=== PATIENT | female | born 1965 ===

== ENCOUNTER 2018-04-11 11:04 | Emergency (ER) | payer BC ==
[2018-04-11 11:24] VITALS: BP 148/80
--- NOTE | 2018-04-11 11:35 | UC ---
Skin Complaint HPI - HPI Summary HPI Summary: This morning at around 430 am she fell on to a palate andhas a left knee laceration. No prior skin infections. No DM. Tdap 3mo ago after a hand laceration. - History of Current Complaint Chief Complaint: UCTrauma Time Seen by Provider: 04/11/18 11:22 Stated Complaint: LFT KNEE LAC Hx Obtained From: Patient Onset/Duration: Sudden Onset, Lasting Hours Skin Exposure Onset/Duration: Hours Ago Timing: Constant Onset Severity: Moderate Current Severity: Moderate Pain Intensity: 8 Location: Discrete Character: Painful Aggravating Factor(s): Touch Alleviating Factor(s): Nothing Associated Signs & Symptoms: Positive: Tenderness Related History: Trauma - Allergy/Home Medications Allergies/Adverse Reactions: Allergies Allergy/AdvReac Type Severity Reaction Status Date / Time No Known Allergies Allergy Verified 04/11/18 11:24 Home Medications: Home Medications Blood Pressure Med 04/11/18 [History] FLUoxetine CAP* [PROzac CAP*] 10 mg PO DAILY 04/11/18 [History Confirmed ] Loratadine [Claritin 10 MG CAP] 10 mg PO 04/11/18 [History] Melatonin/Pyridoxine HCl (B6) [Melatonin 1 mg Tablet] 1 each PO 04/11/18 [ History] Review of Systems Skin: Other - laceration. All Other Systems Reviewed And Are Negative: Yes PMH/Surg Hx/FS Hx/Imm Hx Previously Healthy: Yes - Surgical History Surgical History: Yes Surgery Procedure, Year, and Place: - Family History Known Family History: Positive: Other - no related FH for this laceration. But family does have diabetes. - Social History Occupation: Employed Full-time Alcohol Use: Occasionally Substance Use Type: None Smoking Status (MU): Heavy Every Day Tobacco Smoker Household Exposure Type: Cigarettes Physical Exam Triage Information Reviewed: Yes Appearance: Well-Appearing, No Pain Distress, Well-Nourished Vital Signs: Initial Vital Signs Temp 98.7 F 04/11/18 11:18 Pulse 60 04/11/18 11:18 Resp 16 04/11/18 11:18 BP 148/80 04/11/18 11:18 Pulse Ox 99 04/11/18 11:18 Vital Signs Reviewed: Yes Eye Exam: Normal Eyes: Positive: Conjunctiva Clear. Negative: Conjunctiva Inflamed ENT: Positive: Normal ENT inspection Neck: Positive: Supple, Nontender. Negative: Nuchal Rigidity Respiratory: Negative: Respiratory distress Cardiovascular: Positive: Brisk Capillary Refill Abdomen Description: Negative: Distended Musculoskeletal: Positive: Strength Intact, ROM Intact, No Edema Neurological: Positive: Alert, Muscle Tone Normal. Negative: Fatigued Skin: Positive: Other - 3cm laceration through dermis. Straight. Laceration Repair - Laceration Repair 1 Description: Linear Laceration Size After Repair: Length (cm) - 3cm. Modified For Repair: No Type Injection: Local Anesthesia Used: 2.0% Lido Additive Used (in ml): Epi Irrigation With Pressure Irrigation Device: Yes Closure Material: Sutures Closure Method: Multilayer Suture Of: Skin, SQ - burried subquticular 3 sutures 4-0 vicryl. single interrupted outer layer 4-0 ethilon. 6 sutures. Suture Type: Prolene, Vicryl Course/Dx - Diagnoses Provider Diagnoses: 3cm lacerations. two layers. Discharge - Sign-Out/Discharge Documenting (check all that apply): Discharge/Admit/Transfer - Discharge Plan Condition: Good Disposition: HOME Patient Education Materials: Laceration (ED) Referrals: No Primary Care Phys,NOPCP [Primary Care Provider] - Additional Instructions: Return for suture removal to PCP or here for 10 days. - Billing Disposition and Condition Condition: GOOD Disposition: HOME
[2018-04-11] MEDS ORDERED: Lidocaine 2% EPI 1:200000 MPF*10-20 ML VIAL INJ ONE (11:37)
[2018-04-11] MEDS ORDERED: Lidocaine 2% W/EPI 1:100,000* 20 ML MDV ONE (11:41)
== END 2018-04-11 12:16 | disposition home or self-care (01) ==
LOC: UCCORT 11:04
DX: S81.012A Laceration without foreign body, left knee, initial encounter (principal); W18.09XA Striking against other object with subsequent fall, initial encounter; Y93.9 Activity, unspecified; Y92.9 Unspecified place or not applicable; F17.210 Nicotine dependence, cigarettes, uncomplicated
CPT/HCPCS: 12002; 12032; 99211; G0463